=== PATIENT | female | born 1955 | race Caucasian/White ===

== ENCOUNTER 2018-10-14 07:50 | Day surgery (SDC) | payer BC ==
[~2018-10-14 07:50] MED LIST: Lactated Ringers 1,000 ML IV SCH
[2018-10-14] MEDS ORDERED: fentaNYL 100 MCG/2 ML SDV ONE (08:05)
[2018-10-14] MEDS ORDERED: Propofol 200 MG/20 ML SDV ONE (08:05)
[2018-10-14] MEDS ORDERED: Lidocaine 2% 5 ML SDV ONE (08:05)
--- NOTE | 2018-10-14 08:28 | PCM.PREANE ---
Preanesthetic Assessment - Anesthesia/Transfusion/Family Hx Anesthesia History: Prior Anesthesia Without Reaction (some nausea after breast surg.) Family History of Anesthesia Reaction: No Transfusion History: No Prior Transfusion(s) - Review of Systems General: No Symptoms Pulmonary: No Symptoms Cardiovascular: No Symptoms Gastrointestinal: No Symptoms Neurological: No Symptoms Other: Reports: None - Physical Assessment Vital Signs: Last Vital Signs Temp 97.7 F 10/14/18 08:00 Pulse 88 10/14/18 08:00 Resp 14 10/14/18 08:00 BP 114/82 10/14/18 08:00 Pulse Ox 97 10/14/18 08:00 Height: 5 ft 4 in Weight: 68.039 kg ASA Class: 1 Mental Status: Alert & Oriented x3 Airway Class: Mallampati = 2 Dentition: Reports: Normal Dentition ROM/Head Extension: Full Lungs: Clear to Auscultation, Normal Respiratory Effort Cardiovascular: Regular Rate, Regular Rhythm - Allergies Allergies/Adverse Reactions: Allergies Allergy/AdvReac Type Severity Reaction Status Date / Time No Known Allergies Allergy Verified 10/08/18 14:01 - Blood Blood Available: No - Anesthesia Plan Pre-Op Medication Ordered: None - Acknowledgements Anesthesia Type Planned: General Anesthesia Pt an Appropriate Candidate for the Planned Anesthesia: Yes Alternatives and Risks of Anesthesia Discussed w Pt/Guardian: Yes Pt/Guardian Understands and Agrees with Anesthesia Plan: Yes Additional Comments: PMH: anxiety PLAN: tiva PreAnesthesia Questionnaire HEENT History: Reports: Other (See Below) Other HEENT History: wears glasses, has 1 upper dental implant Gastrointestinal History: Reports: None Genitourinary History: Reports: None FEATHER EDGER History: Reports: Oncologic (Cancer) History: Reports: None - Past Surgical History Head Surgeries/Procedures: Reports: None HEENT Surgical History: Reports: LASIK, Oral Surgery Other HEENT Surgeries/Procedures: wisdom teeth extraction, dental implant GI Surgical History: Reports: Appendectomy, Colonoscopy Female Surgical History: Reports: Breast Biopsy, Hysterectomy, Salpingo- Oophorectomy Other Female Surgeries/Procedures: operative hysteroscopy, polypectomy and D& C 08/23/11, christy breast bx Oncologic Surgical History: Reports: Biopsy of Breast - SUBSTANCE USE Smoking Status *Q: Never Smoker Recreational Drug Use History: No - HOME MEDS Home Medications: Home Meds Zolpidem Tartrate [Ambien Cr] 12.5 mg PO BEDTIME PRN 12/07/17 [History] Estradiol [Vagifem] 10 mcg VAG ASDIRECTED 10/08/18 [History] - CURRENT (IN HOUSE) MEDS Current Meds: Current Medications Lactated Ringer's (Ringers, Lactated) 1,000 mls @ 125 mls/hr IV ASDIRECTED JEWEL Discontinued Medications Fentanyl (Sublimaze) Confirm Administered Dose 100 mcg .ROUTE .STK-MED ONE Stop: 10/14/18 08:06 Lidocaine (Xylocaine-Mpf 2%) Confirm Administered Dose 5 ml .ROUTE .STK-MED ONE Stop: 10/14/18 08:06 Propofol (Diprivan 20 Ml) Confirm Administered Dose 400 mg .ROUTE .STK-MED ONE Stop: 10/14/18 08:06
[2018-10-14] MEDS ORDERED: Lactated Ringers 1,000 ML IV SCH (09:30)
--- NOTE | 2018-10-14 09:31 | PCM.OPNOTE ---
- General Post-Op/Procedure Note Date of Surgery/Procedure: 10/14/18 Operative Procedure(s): Colonoscopy with ascending colon biopsy Pre Op Diagnosis: Desire for colorectal cancer screening Post-Op Diagnosis: Angiodysplasia Anesthesia Technique: MAC (ASA I) Primary Surgeon: Tay Lora Condition: Good Free Text/Narrative:: DICTATION 111592 CPT CODE 89371
--- NOTE | 2018-10-14 10:28 | PCM.POSTAN ---
POST ANESTHESIA ASSESSMENT - MENTAL STATUS Mental Status: Alert, Oriented - VITAL SIGNS Vital Signs: Last Vital Signs Temp 97.7 F 10/14/18 08:00 Pulse 88 10/14/18 10:06 Resp 12 10/14/18 10:06 BP 129/74 10/14/18 10:06 Pulse Ox 96 10/14/18 10:06 - RESPIRATORY Respiratory Status: Respiratory Rate WNL, Airway Patent, O2 Saturation Stable - CARDIOVASCULAR CV Status: Pulse Rate WNL, Blood Pressure Stable - GASTROINTESTINAL GI Status: No Symptoms - POST OP HYDRATION Hydration Status: Adequate & Stable
--- NOTE | 2018-10-14 10:28 | PCM48HPAN ---
Post Anesthesia Note - EVALUATION WITHIN 48HRS OF ANESTHETIC Vital Signs in Normal Range: Yes Patient Participated in Evaluation: Yes Respiratory Function Stable: Yes Airway Patent: Yes Cardiovascular Function Stable: Yes Hydration Status Stable: Yes Pain Control Satisfactory: Yes Nausea and Vomiting Control Satisfactory: Yes Mental Status Recovered: Yes Vital Signs: Last Vital Signs Temp 97.7 F 10/14/18 08:00 Pulse 88 10/14/18 10:06 Resp 12 10/14/18 10:06 BP 129/74 10/14/18 10:06 Pulse Ox 96 10/14/18 10:06
--- NOTE | 2018-10-14 13:05 | OR ---
SURGEON: Tay Lora M.D. DATE OF PROCEDURE: 10/14/2018 OPERATION PERFORMED: Colonoscopy with ascending colon biopsy. PRIMARY SURGEON: Tay Lora M.D. ANESTHESIA: MAC. ASA CLASSIFICATION: I. PREOPERATIVE DIAGNOSIS: Desire for colorectal cancer screening. POSTOPERATIVE DIAGNOSIS: Angiodysplasia. DESCRIPTION OF PROCEDURE: The patient was taken to the endoscopy room and positioned on the endoscopy table in the left lateral decubitus position. Time-out was called for appropriate identification of the patient and procedure. Monitored anesthesia care was provided. The colonoscope was inserted into the rectum and advanced with minimal difficulty to the cecum. The colonoscope was retroflexed to visualize the ascending colon from below, then straightened and slowly withdrawn. Cecum demonstrates changes suggestive of angiodysplasia. Biopsies of the ascending colon were obtained as the changes are very similar in that area. The colonoscope was then slowly withdrawn carefully visualizing the remainder of the ascending colon, hepatic flexure, transverse colon, splenic flexure, descending colon, sigmoid colon, and rectum. There were no other acute findings. Specifically, no polyps, tumors or diverticular changes were noted anywhere in the lower gastrointestinal tract. Once the colonoscope was withdrawn to the rectum, it was retroflexed to visualize the anal orifice from above. No tumors, polyps, or acute hemorrhoidal changes were noted. The colonoscope was then straightened, the rectum aspirated, and the colonoscope removed. The patient tolerated the procedure well and was taken to recovery room in stable condition. MATTEO / MARCELINA /[id number] MARCIAL
== END 2018-10-14 10:36 | disposition home or self-care (01) ==
LOC: MW.SDS 07:50
PROVIDERS: ATTEND Surgery
DX: Z12.11 Encounter for screening for malignant neoplasm of colon (principal); K55.20 Angiodysplasia of colon without hemorrhage; Z79.890 Hormone replacement therapy; Z90.710 Acquired absence of both cervix and uterus; Z90.722 Acquired absence of ovaries, bilateral
CPT/HCPCS: 45380; J2001; J2704; J3010; 88305